=== PATIENT | male | born 1975 | race Caucasian/White ===

== ENCOUNTER 2017-05-07 11:08 | Inpatient (IN) | payer MEDICAID, OTHER ==
[~2017-05-07] VITALS: Ht 177.8 cm; Wt 80.6 kg
[2017-05-07] MEDS ORDERED: CLINDAMYCIN PMX 600MG/50ML 50 ML ONE (11:54)
[2017-05-07 12:00] LABS: HEMATOCRIT 49.1 % (39.2-51.8); HEMOGLOBIN 16.8 g/dL (13.7-18.0); WHITE BLOOD COUNT 14.5 x10^3/uL (3.4-10)
[2017-05-07] MEDS ORDERED: CLINDAMYCIN PMX 600MG/50ML 50 ML IV ONE (12:00)
[2017-05-07] MEDS ORDERED: SODIUM CHLORIDE FLUSH 10ML SYR IVF ONE (12:00)
[2017-05-07 12:10] LABS: BLOOD UREA NITROGEN 13 mg/dL (7-18)
[2017-05-07] MEDS ORDERED: OMNIPAQUE 350 MG/ML, 100ML BOTTLE ONE (12:50)
[2017-05-07] MEDS ORDERED: SODIUM CHLORIDE 0.9% 1,000 ML IV ONE (14:50)
[2017-05-07] MEDS ORDERED: SODIUM CHLORIDE FLUSH 10ML SYR IVF PRN (15:00)
[2017-05-07] MEDS ORDERED: SODIUM CHLORIDE 0.9% 1,000ML IVBOLUS ONE (15:00)
[2017-05-07] MEDS: D5%-0.45% NACL 1,000 ML IV SCH (15:13)
[2017-05-07] MEDS ORDERED: HYDROmorphone 1 MG/ML, 1ML ONE ×2 (15:25→19:31)
[2017-05-07] MEDS ORDERED: ONDANSETRON 2MG/ML, 2ML IVPush PRN ×2 (15:30→19:30)
[2017-05-07] MEDS ORDERED: ONDANSETRON ODT 4 MG PO PRN (15:30)
[2017-05-07] MEDS ORDERED: LABETALOL 5MG/ML, 20ML IVPush PRN (15:30)
[2017-05-07] MEDS ORDERED: morphine SULFATE 10 MG/ML, 1ML IVPush PRN (15:30)
[2017-05-07] MEDS ORDERED: HYDROmorphone 1 MG/ML, 1ML IV SCH (15:30)
[2017-05-07 16:15] VITALS: BP 116/71
[2017-05-07] MEDS ORDERED: BUPIVACAINE/PF 0.25% ONE (18:19)
[2017-05-07] MEDS ORDERED: EPINEPHRINE 1 MG/ML, 1ML ONE (18:19)
[2017-05-07] MEDS ORDERED: LIDOCAINE/PF 1%, 30ML ONE (18:19)
[2017-05-07] MEDS ORDERED: FENTANYL PF 250 MCG/5ML ONE (18:32)
[2017-05-07] MEDS ORDERED: MIDAZOLAM 1 MG/ML, 2ML ONE ×2 (18:32→19:49)
[2017-05-07] MEDS ORDERED: HYDROmorphone 1 MG/ML, 1ML IV ONE (19:00)
[2017-05-07] MEDS ORDERED: ROCURONIUM 10 MG/ML,10ML ONE (19:09)
[2017-05-07] MEDS ORDERED: GLYCOPYRROLATE 0.2MG/1ML, 5ML ONE (19:09)
[2017-05-07] MEDS ORDERED: ONDANSETRON 2MG/ML, 2ML ONE (19:09)
[2017-05-07] MEDS ORDERED: CEFAZOLIN 1,000 MG ONE (19:09)
[2017-05-07] MEDS ORDERED: DEXAMETHASONE 4 MG/ML, 1ML ONE (19:09)
[2017-05-07] MEDS ORDERED: NEOSTIGMINE 1 MG/ML, 10ML ONE (19:09)
[2017-05-07] MEDS ORDERED: PROPOFOL 10 MG/ML, 20ML ONE (19:09)
[2017-05-07] MEDS ORDERED: SUCCINYLCHOLINE 20 MG/ML, 10ML ONE (19:09)
[2017-05-07] MEDS ORDERED: ACETAMINOPHEN 650 MG/20.3 ML UDC ONE (19:27)
[2017-05-07] MEDS ORDERED: OXYcodone 5 MG/5 ML ORAL.SOL UDC ONE (19:27)
[2017-05-07] MEDS ORDERED: LIDOCAINE 1%, 20ML INFIL ONE (19:28)
[2017-05-07] MEDS ORDERED: EPINEPHRINE 1 MG/ML, 1ML INFIL ONE (19:29)
[2017-05-07] MEDS ORDERED: ACETAMINOPHEN 325 MG TABLET PO PRN (19:30)
[2017-05-07] MEDS ORDERED: MIDAZOLAM 1 MG/ML, 2ML IV PRN (19:30)
[2017-05-07] MEDS ORDERED: PROMETHAZINE 25 MG/ML, 1ML IV PRN (19:30)
[2017-05-07] MEDS ORDERED: HYDROmorphone 1 MG/ML, 1ML IV PRN (19:30)
[2017-05-07] MEDS ORDERED: OXYcodone 5 MG/5 ML ORAL.SOL UDC PO PRN (19:30)
[2017-05-07] MEDS ORDERED: FENTANYL PF 100 MCG/2ML IV PRN (19:30)
[2017-05-07] MEDS: HYDROmorphone 1 MG/ML, 1ML IV PRN ×2 (19:33→19:39)
[2017-05-07] MEDS ORDERED: FENTANYL PF 100 MCG/2ML ONE (19:40)
[2017-05-07 20:08] VITALS: BP 141/78
[2017-05-07] MEDS: CLINDAMYCIN PMX 600MG/50ML 50 ML IV SCH (20:45)
[2017-05-07] MEDS: CHLORHEXIDINE MOUTHWASH 15 ML UDC MM SCH (21:35)
[2017-05-08] MEDS: HYDROcodone/APAP 5/325 TABLET PO PRN ×4 (00:32→14:11)
[2017-05-08 01:40] VITALS: BP 118/66
[2017-05-08] MEDS: D5%-0.45% NACL 1,000 ML IV SCH ×2 (02:59→11:39)
[2017-05-08] MEDS: CLINDAMYCIN PMX 600MG/50ML 50 ML IV SCH ×2 (04:45→13:00)
[2017-05-08 06:05] LABS: HEMATOCRIT 42.5 % (39.2-51.8); HEMOGLOBIN 14.6 g/dL (13.7-18.0)
[2017-05-08 06:14] LABS: BLOOD UREA NITROGEN 12 mg/dL (7-18)
[2017-05-08 06:17] LABS: ASPARTATE AMINO TRANSFERASE 8 U/L (15-37)
[2017-05-08 06:42] VITALS: BP 93/53
[2017-05-08] MEDS: CHLORHEXIDINE MOUTHWASH 15 ML UDC MM SCH (09:24)
[2017-05-08 12:54] VITALS: BP 117/62
[2017-05-08] MEDS ORDERED: IBUP-1222 PO (13:38)
[2017-05-08] MEDS ORDERED: CLIN300C8 PO (13:38)
== END 2017-05-08 14:24 | disposition home or self-care (01) | DRG 158 ==
LOC: ED 13:58 → EDIP 14:50 → 3NE 16:30
PROVIDERS: ADMIT Hospitalist; ATTEND Hospitalist
PROC: 0CDXXZ0 Extraction of Lower Tooth, Single, External Approach (ICD-10-PCS; 2017-05-07)
PROC: 0C9X000 Drainage of Lower Tooth with Drainage Device, Open Approach, Single (ICD-10-PCS; principal; 2017-05-07 18:00)
DX: K04.7 Periapical abscess without sinus (principal); L03.211 Cellulitis of face; F17.210 Nicotine dependence, cigarettes, uncomplicated; L02.01 Cutaneous abscess of face; K02.9 Dental caries, unspecified; H00.035 Abscess of left lower eyelid; R73.9 Hyperglycemia, unspecified; Z82.49 Family history of ischemic heart disease and other diseases of the circulatory system; Z88.0 Allergy status to penicillin; W26.8XXA Contact with other sharp object(s), not elsewhere classified, initial encounter; Y93.E8 Activity, other personal hygiene
CPT/HCPCS: 36415; 70100; 70487; 80048; 80053; 82040; 83605; 83735; 85025; 87070; 87075; 87077; 87186; 87205; 96365; 96366; J0171; J0690; J1100; J1170; J2250; J2405; J2704; J2710; J3010; J3490; Q9967; J0330; J7030

== ENCOUNTER 2018-10-12 19:29 | Emergency (ER) | payer MEDICAID ==
[~2018-10-12] VITALS: Ht 175.3 cm; Wt 80.1 kg
[~2018-10-12 19:29] MED LIST: CLIN300C8 PO; IBUP-1222 PO
[2018-10-12 19:31] VITALS: BP 143/91
[2018-10-12] MEDS ORDERED: KETOROLAC 30 MG/1 ML ONE (19:57)
[2018-10-12] MEDS ORDERED: DIPH,PERTUSS(ACELL),TET VAC/PF 0.5 ML IM-VACC ONE ×2 (19:57→20:00)
[2018-10-12] MEDS ORDERED: HYDROcodone/APAP 5/325 TABLET ONE (19:57)
[2018-10-12] MEDS ORDERED: HYDROcodone/APAP 5/325 TABLET PO PRN (20:00)
[2018-10-12] MEDS ORDERED: KETOROLAC 30 MG/1 ML IM ONE (20:00)
== END 2018-10-12 20:47 | disposition home or self-care (01) ==
LOC: ED 20:41
DX: S42.022A Displaced fracture of shaft of left clavicle, initial encounter for closed fracture (principal); V11.4XXA Pedal cycle driver injured in collision with other pedal cycle in traffic accident, initial encounter; Y93.89 Activity, other specified; Y92.410 Unspecified street and highway as the place of occurrence of the external cause; Y99.8 Other external cause status; F17.200 Nicotine dependence, unspecified, uncomplicated
CPT/HCPCS: 29105; 73030; 90471; 90715; 96372; 99283; J1885